=== PATIENT | female | born 1995 | race Caucasian/White ===

== ENCOUNTER → 2022-03-11 09:17 | Outpatient (CLI) | payer BC, SELFPAY ==
--- NOTE | ~2022-03-11 | US_ITS ---
EXAMINATION: US OB <= 14 weeks fetus DATE: 03/11/2022 09:37 INDICATION: First trimester dating TECHNIQUE: Real-time pelvic transabdominal and transvaginal ultrasound was performed. COMPARISON: None. FINDINGS: The uterus measures 9 x 6.8 x 7.1 cm. An approximately 3 cm fibroid is noted in the anterio r uterine body. There is an intrauterine gestational sac. A yolk sac is identified. heart motio n is identified measuring 154 beats per minute (bpm) by M-mode Doppler. The crown rump length m easures 3.9 cm, which correlates with an estimated gestational age of 10 weeks and 6 day(s) (+/-) 7 d ay(s). The ovaries are not visualized however no adnexal abnormality is seen. There is no free fluid in the pelvis. IMPRESSION: 1. Live intrauterine with an estimated gestational age of 10 weeks and 6 day(s) (+/-) 7 day (s) and an estimated delivery date of 10/01/2022. Reviewed, dictated and finalized at location A. IMPRESSION: 1. Live intrauterine with an estimated gestational age of 10 weeks an d 6 day(s) (+/-) 7 day(s) and an estimated delivery date of 10/01/2022.
== END ==
PROVIDERS: PCP Family Medicine; Visit Provider Advanced Practice Midwife
DX: Z36.9 Encounter for antenatal screening, unspecified (principal); Z3A.10 10 weeks gestation of pregnancy
CPT/HCPCS: 76801

== ENCOUNTER → 2022-05-03 14:05 | Outpatient (CLI) | payer OTHER, SELFPAY ==
--- NOTE | ~2022-05-03 | US_ITS ---
EXAMINATION: US OB /maternal detail DATE: 05/03/2022 15:07 INDICATION: survey TECHNIQUE: Multiple obstetric sonographic images performed. FINDINGS: Ultrasound dated 03/11/2022 There is a single living fetus in variable presentation. The placenta is low lying and posterior vickey suring 1.8 cm to the cervix. without placenta previa. Amniotic fluid volume is normal. cardiac activity and movement is noted with a heart rate of 154 beats per minute. The following anatomy was identified as normal: 4 chamber heart 3 vessel cord cord insertion kidneys urinary bladder stomach spine diaphragm ventricles cisterna magna cerebellum The following biometric data were obtained: BPD: 41mm corresponds to gestational age 18 weeks 3 days. Head circumference: 155 mm corresponds to gestational age 18 weeks 3 days. Abdominal circumference: 128 mm corresponds to gestational age 18 weeks 2 days. Femur length: 25 mm corresponds to gestational age 17 weeks 5 days. Head circumference to abdominal circumference ratio: 1.22 (normal range for expected gestational age is 1.08-1.27). Estimated weight: 223 grams +/- 33 grams using Hadlock method. IMPRESSION: 1: Single living intrauterine with an estimated gestational age of 18weeks 3days by initial ultrasound measurements, with an EDC of 10/01/2022 in variable presentation. 2. Normal survey. 3: Low-lying posterior placenta measuring 1.8 cm to the cervix. Reviewed, dictated and finalized at location B. ER AND POLISHER IMPRESSION: 1: Single living intrauterine with an estimated gestational age of 18 weeks 3days by initial ultrasound measurements, with an EDC of 10/01/2022 in tabby iable presentation. 2. Normal survey. 3: Low-lying posterior placenta measuring 1.8 cm to the cervix.
== END ==
PROVIDERS: PCP Family Medicine; Visit Provider Obstetrics & Gynecology Gynecology
DX: Z36.9 Encounter for antenatal screening, unspecified (principal); O44.42 Low lying placenta NOS or without hemorrhage, second trimester; Z3A.00 Weeks of gestation of pregnancy not specified
CPT/HCPCS: 76805

== ENCOUNTER → 2022-07-11 10:58 | Outpatient (CLI) | payer OTHER, SELFPAY ==
--- NOTE | ~2022-07-11 | US_ITS ---
EXAMINATION: US OB follow up DATE: 07/11/2022 11:18 INDICATION: Size greater than dates during third trimester TECHNIQUE: Real-time ultrasound of the pelvis was performed. The interpreting radiologist was not pre sent for the study. COMPARISON: None. FINDINGS: There is a single living fetus in breech presentation. The placenta is posterior and 1.3 cm from the internal cervical os. cardiac activity and movement are noted. heart rate is 142 beats per minute (bpm). The amniotic fluid index is 15.2 cm which is normal (normal range: 9. 4 cm to 22.8 cm). The following biometric data were obtained: Biparietal diameter (BPD): 7.0 cm; head circumference (HC): 26.1 cm; abdominal circumference (AC): 24 .0 cm; femur length (FL): 5.1 cm. These measurements are concordant. Estimated weight is 1161 g +/- 174 g, which correlates with the 27th percentile when 10/01/2022 is used as estimated date of delivery. As single measurements, these parameters are each equal to the following estimated gestational ages w ith ranges of +/- 2 standard deviations: BPD: 28 weeks 2 days ( 26 weeks 1 days - 30 weeks 3 days). HC: 28 weeks 3 days ( 26 weeks 2 days - 30 weeks 3 days). AC: 28 weeks 2 days ( 26 weeks 1 days - 30 weeks 4 days). FL: 27 weeks 3 days ( 25 weeks 2 days - 29 weeks 3 days). estimated gestational age based solely on measurements from this exam is 28 weeks 1 days +/- 2 weeks 0 days. IMPRESSION: 1. Single living fetus in breech presentation. 2. Low-lying placenta. 3. Normal amniotic fluid index. 4. Estimated weight is 1161 g +/- 174 g, which correlates with the 27th percentile when 10/02/19 23 is used as estimated date of delivery. Reviewed, dictated and finalized at location B. NESS RECORDS MANAGER IMPRESSION: 1. Single living fetus in breech presentation. 2. Low-lying placenta. 3. Normal amniotic fluid index. 4. Estimated weight is 1161 g +/- 174 g, which correlates with the 27th p ercentile when 10/01/2022 is used as estimated date of delivery.
== END ==
PROVIDERS: PCP Obstetrics & Gynecology Gynecology; Visit Provider Obstetrics & Gynecology Gynecology
DX: O36.63X0 Maternal care for excessive fetal growth, third trimester, not applicable or unspecified (principal); O44.43 Low lying placenta NOS or without hemorrhage, third trimester; Z3A.00 Weeks of gestation of pregnancy not specified
CPT/HCPCS: 76816

== ENCOUNTER → 2022-08-08 09:46 | Outpatient (CLI) | payer OTHER, SELFPAY ==
--- NOTE | ~2022-08-08 | US_ITS ---
US OB limited 08/08/2022 10:05 Indication: Low-lying placenta. Procedure: High-resolution Limited obstetrical ultrasound Comparison: No prior studies for comparison. Findings: There is a single living intrauterine in vertex presentation. Placenta is posteri or to the left measuring 9.9 cm to the cervix. Amniotic fluid volume is subjectively normal. he art rate is 164 BPM. Impression: 1: Single living intrauterine in vertex presentation. 2: Posterior placenta without previa. Reviewed, dictated and finalized at location B. ONNEL ANALYST Impression: 1: Single living intrauterine in vertex presentation. 2: Posterior placenta without previa.
== END ==
PROVIDERS: PCP Family Medicine; Visit Provider Advanced Practice Midwife
DX: O44.43 Low lying placenta NOS or without hemorrhage, third trimester (principal); Z3A.00 Weeks of gestation of pregnancy not specified
CPT/HCPCS: 76815

== ENCOUNTER → 2022-09-05 09:59 | Outpatient (CLI) | payer OTHER, SELFPAY ==
--- NOTE | ~2022-09-05 | US_ITS ---
EXAMINATION: US OB follow up DATE: 09/05/2022 10:24 INDICATION: Size greater than dates during third trimester TECHNIQUE: Real-time ultrasound of the pelvis was performed. The interpreting radiologist was not pre sent for the study. COMPARISON: 08/08/2022 FINDINGS: There is a single living fetus in vertex presentation. The placenta is posterior/left. Feta l cardiac activity and movement are noted. heart rate is 136 beats per minute (bpm). The amniotic fluid index is 18.0 cm which is normal (normal range: 7.7 cm to 24.9 cm). The following biometric data were obtained: Biparietal diameter (BPD): 9.3 cm; head circumference (HC): 34.3 cm; abdominal circumference (AC): 34 .6 cm; femur length (FL): 6.5 cm. The femoral length to abdominal circumference ratio and femoral length to biparietal diameter ratio a re greater than two standard deviations below the mean. These measurements are concordant. Estimated weight is 3201 g +/- 480 g, which correlates with the 81st percentile when 10/01/2013 is used as estimated date of delivery. As single measurements, these parameters are each equal to the following estimated gestational ages w ith ranges of +/- 2 standard deviations: BPD: 37 weeks 5 days ( 34 weeks 3 days - 40 weeks 6 days). HC: 39 weeks 4 days ( 37 weeks 0 days - 42 weeks 2 days). AC: 38 weeks 4 days ( 35 weeks 3 days - 51 weeks 4 days). FL: 33 weeks 4 days ( 30 weeks 4 days - 36 weeks 3 days). estimated gestational age based solely on measurements from this exam is 37 weeks 3 days +/- 2 weeks 4 days. IMPRESSION: 1. Single living fetus in vertex presentation. 2. Normal amniotic fluid index. 3. Estimated weight is 3201 g +/- 480 g, which correlates with the 81st percentile when 10/02/19 14 is used as estimated date of delivery. 4. Femoral length to abdominal circumference ratio and femoral length to biparietal diameter ratio ar e greater than two standard deviations below the mean. Reviewed, dictated and finalized at location F. IMPRESSION: 1. Single living fetus in vertex presentation. 2. Normal amniotic fluid index. 3. Estimated weight is 3201 g +/- 480 g, which correlates with the 81st p ercentile when 10/01/2013 is used as estimated date of delivery. 4. Femoral length to abdominal circumference ratio and femoral length to bipari etal diameter ratio are greater than two standard deviations below the mean.
== END ==
PROVIDERS: PCP Family Medicine; Visit Provider Obstetrics & Gynecology Gynecology
DX: O36.63X0 Maternal care for excessive fetal growth, third trimester, not applicable or unspecified (principal); Z3A.37 37 weeks gestation of pregnancy
CPT/HCPCS: 76816

== ENCOUNTER 2022-09-12 09:41 | Inpatient (IN) | payer OTHER, SELFPAY ==
[2022-09-12] VITALS (96 sets, daily range): BP systolic 115–157; BP diastolic 59–100; PULSE 58–91; RESP 16; TEMP 36.3–37; O2SAT 94–100; BMI 38.7
--- NOTE | 2022-09-12 09:50 | PC.NURSE ---
Dr Salvador at bedside, plan of care discussed and bedside US performed. No cardiac motion noted per Dr Salvador. Patient very tearful and upset.
[2022-09-12 11:44] LABS: Basophils Percent Auto 0.1 % (0.2-1.2); Eosinophils Absolute Auto 0.1 K/mm3 (0-0.3); Eosinophils Percent Auto 1.1 % (0-4.4); Hematocrit 37.9 % (37.0-47.0); Hemoglobin 12.6 g/dL (12.0-15.0); Immature Granulocyte Absolute 0.14 K/mm3 (0.00-0.031); Immature Granulocyte Percent A 1.6 % (0-0.5); Lymphocytes Absolute Auto 1.36 K/mm3 (0.9-3.2); Lymphocytes Percent Auto 15.4 % (18.3-44.2); Mean Corpuscular HGB Conc 33.2 g/dl (32-36); Mean Corpuscular Hemoglobin 30.5 pg (26-34); Mean Corpuscular Volume 91.8 fl (80-100); Mean Platelet Volume 11.5 fl (7.4-10.4); Monocytes Absolute Auto 0.5 K/mm3 (0.1-0.6); Monocytes Percent Auto 5.9 % (2.6-8.5); Neutrophils Absolute Auto 6.7 K/mm3 (1.3-6.7); Neutrophils Percent Auto 75.9 % (45.5-73.1); Nucleated Red Blood Cells Perc 0.3 % (0.0-0.2); Platelet Count Result 225 k/mm3 (150-375); Red Blood Count 4.13 M/mm3 (4.2-5.4); Red Cell Distribution Width 15.8 % (11.5-14.5); White Blood Count 8.9 K/mm3 (4.5-10.0)
--- NOTE | 2022-09-12 11:44 | LDADM ---
This patient, Johanny Gallegos, was admitted to Labor/Delivery/Recovery 110 on 09/12/22 at 09:41. Plans for labor, pain management and were discussed with patient. Patient/family oriented to hospital policies and general routines including ID bracelet, bed and alarms, visiting hours, pain management, procedures, bathroom and other care routines, personal items, smoking policy, room service/diet and guest tray routines, infant security routines, and visiting hours. Patient/Family are encouraged to report perceived risks to care and to ask questions if they do not understand what they are told or what they should do. See OBIX for further documentation.
[2022-09-12] MEDS: miSOPROStol 25 MCG TABLET BY MOUTH (11:51)
[2022-09-12 12:00] LABS: Magnesium 1.8 mg/dL (1.6-2.3); Phosphorus 3.9 mg/dL (2.5-4.5)
[2022-09-12 12:01] LABS: Alanine Aminotransferase 78 U/L (6-35); Albumin Level 3.7 g/dL (3.5-5.1); Alkaline Phosphatase 295 U/L (38-126); Anion Gap 7 mmol/L (8-16); Aspartate Amino Transferase 77 U/L (14-36); Bilirubin,Total 0.8 mg/dL (0.2-1.3); Blood Urea Nitrogen 6 mg/dL (7-17); Calcium 9.1 mg/dL (8.4-10.2); Carbon Dioxide 22 mmol/L (22-30); Chloride 107 mmol/L (98-107); Estimated CRCL calculation 163 ml/min; Estimated Glomerular Filt Rate > 60; Glucose 85 mg/dL (65-110); Potassium 4.1 mmol/L (3.4-5.0); Sodium 136 mmol/L (137-145)
--- NOTE | 2022-09-12 12:18 | WPDOBADMIT ---
Obstetrics - Admit Note Admission Note: record reviewed. No pertinent additions to the history and/or any subsequent changes in the physical findings that are not consistent with the expected course of the were found. Additions to the history and/or subsequent changes in the physical findings follow. IUFD at term.
--- NOTE | 2022-09-12 12:31 | PM.OBPNLAB ---
Pain Control Date/time seen: 09/12/22 12:20 Pain control: tolerating well Comments: Denies pain. Contractions Monitor mode: External Contraction pattern: Irregular Status Comments: IUFD Assessment and Plan Assessment: induction ongoing Comments: CNM at bedside. Blood pressures have been mild range and elevated liver enzymes observed on CMP. Patient denies headache, visual changes, right upper quadrant pain or increase in edema. She has no clonus But does have 1+ pitting bilateral lower extremity edema. discussed CNM concern for preeclampsia and discussed signs and symptoms of preeclampsia. On more thorough discussion patient endorses pruritus that has been severe at times. She reports itching to her palms of hands and soles of feet. She states that she never brought this up with her provider because she thought it was normal but has bee intermittent or the last few weeks. Will order bile acids.
[2022-09-12 12:32] LABS: Free T4 Free Thyroxine 0.66 ng/mL (0.78-2.19)
--- NOTE | 2022-09-12 12:39 | PM.OBPNLAB ---
Pain Control Date/time seen: 09/12/22 0955 Comments: pt to L&D from office as IUFD suspected. Dr. Salvador at bedside. Contractions Monitor mode: External Contraction pattern: Irregular Assessment and Plan Comments: Pt's spouse and mother present. Bedside ultrasound by Dr. Salvador confirms IUFD. Emotional support provided. Discussed plan of care and offer for IOL at this time. Pt desires to start IOL with sublingual misoprostol.
[2022-09-12 12:46] LABS: Hepatitis B Surface Antigen Negative (Negative)
[2022-09-12 12:52] LABS: Rubella IgG Antibody 37.2 IU/ML
[2022-09-12 12:55] LABS: HIV 1/2 Ab P24 Ag Result Negative (Negative)
[2022-09-12 13:58] LABS: Appearance Urine Clear (Clear); Bacteria Urine 1+ /hpf; Bilirubin Urine Negative (Negative); Blood Urine Negative (Negative); Color Urine Yellow (Yellow); Glucose Urine UA Negative (Negative); Ketones Urine Negative (Negative); Leukocyte Esterase Ur 3+ LEU/UL (NEGATIVE); Nitrate Urine Negative (Negative); Non Pathogenic Casts 0-2; Protein Urine Negative (Negative); RBC Urine 0-2 /hpf (0-2); Specific Grav Ur 1.007 (1.001-1.035); Squamous Epithelial Cell Urine Occasional /hpf (Few); Urobilinogen Urine 0.2 mg/dL (<2.0); WBC Urine 21-50 /hpf (0-3)
[2022-09-12 14:03] LABS: Creatinine Urine 33.4 mg/dL; Total Protein Urine Random 10 mg/dL
[2022-09-12 14:09] LABS: Add Urine Microscopic? YES
[2022-09-12 14:19] LABS: Amphetamine Screen Urine Negative (Negative); Barbiturate Screen Urine Negative (Negative); Benzodiazepines Screen Urine Negative (Negative); Cannabinoid Screen Urine Negative (Negative); Cocaine Screen Urine Negative (Negative); Methadone Screen Urine Negative (Negative); Opiate Screen Urine Negative (Negative); Phencyclidine Screen Urine Negative (Negative)
[2022-09-12] MEDS: miSOPROStol 100 MCG TABLET PO (16:13)
[2022-09-12] MEDS: fentaNYL CITRATE INJ (*CRX) 100 MCG/2 ML VIAL 50 MCG IV PUSH (17:56)
--- NOTE | 2022-09-12 18:13 | P.PNOB_ITS ---
Pain Control Date/time seen: 09/12/22 2575 Pain control: tolerating well Comments: Feeling occasional cramping/contractions. Pelvic Exam Dilation (cm): 1 (1.5) Effacement (%): 50 station: -2 Amniotic membrane status: Intact Contractions Monitor mode: External Contraction pattern: Irregular Contraction intensity: Mild Status Comments: n/a Assessment and Plan Assessment: induction ongoing Comments: CNM to bedside. Discussed IOL process and plan of care. Discussed expectations with IOL and delivery process. Discussed option of placing a patel balloon via cervix for cervical ripening/dilation. Pt agreeable/desires. Ofered IV analgesia and epidural before placement and pt desires IV medication. This was administered and she was then positioned in lithotomy. A patel catheter was placed through the cervical os using a stylette. It was inflated with 60ml s terile saline and the stylette was removed. Tubing secured to pt's thigh. Anticipate vaginal .
[2022-09-12] MEDS: LACTATED RINGERS 1,000 ML 125 ML IV CONT ×3 (18:21→20:50)
--- NOTE | 2022-09-12 18:27 | WPDANESEPPF ---
Anes - Initial Pre Proc Eval Procedure: Labor Epidural Date/Time: 09/12/22 18:27 Surgeon: Ladi Salvador MD Pre Op Diagnosis: Pain c contractions Pre Op Diagnosis: IUFD Patient Data Age: 27 Gender: F Height: 1.63 m Weight: 102.4 kg Last Vital Signs Pulse 59 L 09/12/22 17:31 BP 152/86 H 09/12/22 17:31 O2 Del Method Room Air 09/12/22 11:43 Allergies Allergy/AdvReac Type Severity Reaction Status Date / Time No Known Allergies Allergy Verified 09/01/22 13:40 Home Medications Medication Instructions Recorded Confirmed Type aspirin 81 mg tablet 81 mg PO DAILY 09/01/22 09/01/22 History ferrous sulfate 325 mg (65 mg 650 mg PO DAILY 09/01/22 09/01/22 History iron) tablet levothyroxine 100 mcg tablet 100 mcg PO DAILY 09/01/22 09/01/22 History prenat.vits,cj,sdn-oofr-xsuom 1 tablet PO DAILY 09/01/22 09/01/22 History sertraline 50 mg tablet 50 mg PO DAILY 09/01/22 09/01/22 History Laboratory Tests 09/12/22 09/12/22 09/12/22 10:55 10:55 10:55 WBC RBC Hgb Hct MCV MCH MCHC RDW Plt Count MPV Immature Gran % (Auto) Neut % (Auto) Lymph % (Auto) [place] % (Auto) Eos % (Auto) Baso % (Auto) Lymph # (Auto) [place] # (Auto) Eos # (Auto) Baso # (Auto) Abs Immat Gran (auto) Absolute Neuts (auto) Absolute Nucleated RBC Nucleated RBC % PT INR APTT LA PTT Screen Pending dRVVT Screen Pending dRVVT Additional Test Pending Lupus Anticoag Interp Pending Sodium Potassium Chloride Carbon Dioxide Anion Gap BUN Creatinine Estim Creat Clear Calc Estimated GFR Glucose Cancelled Uric Acid Cancelled 5.0 mg/dL mg/dL (2.5-7.5) Calcium Phosphorus 3.9 mg/dL mg/dL (2.5-4.5) Magnesium 1.8 mg/dL mg/dL (1.6-2.3) Total Bilirubin Direct Bilirubin AST ALT Alkaline Phosphatase Total Protein Albumin Cholic Acid Deoxycholic Acid Chenodeoxycholic Acid Total Bile Acids TSH 4.170 uIU/mL uIU/mL (0.465-4.680) Free T4 Urine Color Urine Appearance Urine pH Ur Specific [place] Urine Protein Urine Glucose (UA) Urine Ketones Ur Blood (Man) Urine Nitrate Urine Bilirubin Urine Urobilinogen Ur Leukocyte Esterase Urine RBC Urine WBC Ur Squamous Epith Cells Urine Bacteria Urine Casts U Random Total Protein Urine Creatinine Protein/Creat Ratio 2 Urine Opiates Screen Urine Methadone Screen Ur Barbiturates Screen Ur Phencyclidine Scrn Ur Amphetamine Screen U Benzodiazepines Scrn Urine Cocaine Screen U Cannabinoids Screen Beta-2-GPI IgG Ab Beta-2-GPI IgA Ab Beta-2-GPI IgM Ab Anti-Cardiolipin IgG Ab Anti-Cardiolipin IgA Ab Anti-Cardiolipin IgM Ab RPR CMV IgG Ab CMV IgM Ab Hep Bs Antigen HIV 1&2 Ab/P24 Ag 4thGn Rubella IgG Antibody Blood Type Antibody Screen 09/12/22 09/12/22 09/12/22 10:55 10:55 10:55 WBC RBC
--- NOTE | 2022-09-12 18:58 | WPDANESEPN ---
Anes - Epidural Procedure Note Date/Time: 09/12/22 18:58 Consent: I have discussed with the patient/family/POA, the placement of an epidural catheter and the use of epidural narcotic/local anesthetic for labor analgesia and/or postoperative pain management, including associated potential risks, benefits, complications and side effects. I have discussed alternative methods of labor analgesia and/or postoperative pain management. The patient/family/POA, understand(s) and wish(es) to proceed with epidural narcotic/local anesthetic for labor analgesia and/or postoperative pain management. Time-Out: A pre-procedural Time-Out was completed immediately before starting the procedure and confirmed: Patient Identification, Site, Procedure, Patient Position and the Availability of Requisite Equipment. Clinical Indications: Pain c contractions Epidural Insertion Note Patient position: sitting Skin prep: chlorhexidine and sterile drape Needle: 18g Tuohy-Schliff Catheter: 20g Unstyleted Technique: Loss of resistance. Level of insertion: L4/5 Catheter skin jordon (cm): 7 Length in epidural space (cm): 12 Skin anesthesia: lidocaine 1% Test dose: negative for subarachnoid Inj and negative for intravascular Inj Time of test dose: 18:47 Observations: tolerated well Complications: none
[2022-09-12] MEDS: OXYTOCIN 30 UNITS/NS 500 ML 30 UNITS/500 ML BAG IV CONT (22:00)
[2022-09-13] VITALS (257 sets, daily range): BP systolic 110–160; BP diastolic 56–98; PULSE 47–114; RESP 16–18; TEMP 36.4–37.7; O2SAT 94–100
[2022-09-13 06:56] LABS: Rapid Plasma Reagin Non-Reactive (NonReactive)
--- NOTE | 2022-09-13 07:49 | PM.OBPNLAB ---
Pain Control Date/time seen: 09/13/22 07:30 Pain control: tolerating well and epidural Pelvic Exam Dilation (cm): 5 (1.5) Effacement (%): 70 station: -2 Amniotic membrane status: Intact Contractions Monitor mode: External Contraction pattern: Irregular Contraction intensity: Moderate Status Comments: n/a Assessment and Plan Pitocin rate (mU/min): 16 Assessment: induction ongoing Comments: CNM to bedside. Patient reports sleeping on and off over the night. She is comfortable and epidurals infusing well. Emotional support provided. Discussed pt wishes for and holding baby. Discuss next steps in induction and recommended amniotomy and placement intrauterine pressure catheter. Patient is agreeable. Amniotomy performed and there was a return of a large amount of very dark green / brown meconium-stained amniotic fluid. The IUPC was placed and the catheter was advanced easily. Plan to increase Pitocin as needed to achieve adequate contraction pattern. Anticipate vaginal .
[2022-09-13] MEDS: CALCIUM CARBONATE (TUMS) 500 MG (200 MG ELEMENTAL) PO (14:03)
[2022-09-13] MEDS: TRANEXAMIC ACID 1,000MG/ISO100 1,000 MG/100 ML BAG 200 MG IVPB (16:56)
[2022-09-13] MEDS: CARBOPROST TROMETHAMINE 250 MCG/ML AMPUL (17:09)
[2022-09-13] MEDS: miSOPROStol 200 MCG TABLET (17:10)
--- NOTE | 2022-09-13 17:30 | P.PCNOB_ITS ---
OB - Delivery Note Procedure Delivery date: 09/13/22 Procedure: Induction method: Per Misoprostol Protocol and Per Pitocin Protocol Delivery augmentation: Rupture of Membranes Delivery monitor: Internal Uterine Route of delivery: Episiotomy description: None Laceration Description: Periurethral Specimen: Yes (placenta) Quantitative Blood Loss (ml): 1,765 Anesthesia type: Epidural Disposition: No change Complications: Covid in IUFD at 37 weeks Narrative: Pt arrived from the office on 09/12/22 and IUFD confirmed with Dr. Salvador. Pt offered immediate vs delayed IOL and she elected for immediate. She received buccal misoprostol followed by a patel balloon and then oxytocin for her induction. She progressed to complete dilation and pushed with contractions. She delivered a stillborn male over an intact perineum. There was a compound presentation with the right hand positioned to the left side of the face. The cord was doubly clamped and cut and the baby was placed in a basinet per pt wishes. The placenta delivered in the [facility] present[facility]. There was some uterine atony. Hemabate, TXA, and rectal cytotec were given. Clots were manually removed from the lower uterine segment twice. After hemostasis was achieved, the placenta was examined. There was some meconium staining to the tissue. The umbilical cord appeared longer than average and a true knot was noted. The umbilical cord was also very straight with no spiraling observed. Ancef given IV for infection prophylaxis after bimanual exam. [place] Baby Date of : 09/13/22 Weeks of gestation at delivery: 37 gender: Male Weight (pounds): 7 Weight (ounces): 13 presentation: vertex position: Right Occiput Anterior (compound presentation with right hand to left side of head) Placenta delivery description: Spontaneous Cord Vessel Description: 3 Vessels, True Knot and Around Body score one minute: 0 score five minutes: 0 score ten minutes: 0
[2022-09-13] MEDS: ceFAZolin 2 GM/D5W 50 ML 2 GM/50 ML BAG IVPB (17:32)
[2022-09-13] MEDS: LOPERAMIDE HCL 2 MG CAPSULE 4 MG PO (17:32)
[2022-09-13] MEDS: OXYTOCIN 30 UNITS/NS 500 ML 30 UNITS/500 ML BAG 125 UNITS IV CONT (17:35)
[2022-09-13] MEDS: OXYTOCIN 30 UNITS/NS 500 ML 30 UNITS/500 ML BAG 999 UNITS IV CONT (17:45)
[2022-09-13] MEDS: IBUPROFEN 600 MG TABLET PO (19:20)
[2022-09-13] MEDS: ACETAMINOPHEN 325 MG TABLET 650 MG PO (20:23)
[2022-09-14] VITALS (17 sets, daily range): BP systolic 121–151; BP diastolic 63–90; PULSE 62–89; RESP 16–20; TEMP 35.9–37.1; O2SAT 97–99
[2022-09-14 04:19] LABS: Hematocrit 31.9 % (37.0-47.0); Hemoglobin 10.5 g/dL (12.0-15.0)
[2022-09-14 05:05] LABS: Free T4 Free Thyroxine 0.51 ng/mL (0.78-2.19)
[2022-09-14] MEDS: LEVOTHYROXINE SODIUM 100 MCG TABLET PO (06:43)
[2022-09-14] MEDS: MULTIVIT/MIN/PREN/FOL AC/IRON TABLET 1 TAB PO (08:01)
[2022-09-14] MEDS: SERTRALINE HCL 50 MG TABLET PO (08:02)
[2022-09-14] MEDS: LEVOTHYROXINE SODIUM 25 MCG TABLET PO (08:02)
--- NOTE | 2022-09-14 08:07 | P.PNOB_ITS ---
OB - PN: Subj Subjective Date/time seen: 09/14/22 0750 Interval history: Resting in bed. Reports ambulating to BR and voiding without difficulty. Denies heavy bleeding or large clots. Spouse present for support. Grieving is WNL. Denies MCDONALD, visual changes, RUQ pain, or change in edema. Patient comments: no complaints and pain well controlled OB - PN: Obj Data Labs 09/14/22 04:03 09/12/22 10:56 Labs: Laboratory Results - last 24 hr 09/12/22 09/14/22 09/14/22 17:36 04:03 04:03 Hgb 10.5 L Hct 31.9 L PT Cancelled INR Cancelled APTT Cancelled TSH 5.130 H Free T4 09/14/22 04:03 Hgb Hct PT INR APTT TSH Free T4 0.51 L OB - PN A/P Plan day: 1 Plan: routine care Comments: Discussed plan of care with pt. Will evaluate later today and consider timing of discharge home. Time Spent With Patient Time: Total time spent is greater than 50% in coordination of care (as documented) at patient's floor/unit and/or counseling patient: Review of Systems Review of Systems: All systems reviewed & are unremarkable except as noted in HPI and below Exam Narrative: Alert and oriented. Mood is pleasant and cooperative. Urinating without difficulty. Denies passing any large clots. Perineum with minimal edema. Fundus firm and below umbilicus. Const: General: cooperative, healthy appearing, no acute distress and alert Orientation/consciousness: patient oriented x3 Limitations: no limitations Resp: Effort & Inspection: normal respiratory effort Auscultation: clear to auscultation bilaterally Cardio: Rate: regular rate GI: Inspection: normal to inspection Neuro: General: patient oriented x3 Other: DTRs 2+, neg clonus Extrem: General: normal to inspection Psych: Appearance: grossly normal Mental Status: mental status grossly norm al Affect: normal affect Thought process: Normal thought process present
[2022-09-14] MEDS: ACETAMINOPHEN 325 MG TABLET 650 MG PO ×2 (12:03→23:56)
--- NOTE | 2022-09-14 17:20 | PM.OBPNVD ---
OB - PN: Subj Subjective Date/time seen: 09/14/22 17:15 Interval history: Sitting up in bed. Several family members and friends present. Still undecided on arrangements for baby. Denies MCDONALD, visual changes, RUQ pain, change in edema. Patient comments: no complaints and pain well controlled OB - PN: Obj Data Labs 09/14/22 04:03 09/12/22 10:56 Labs: Laboratory Results - last 24 hr 09/12/22 09/14/22 09/14/22 17:36 04:03 04:03 Hgb 10.5 L Hct 31.9 L PT Cancelled INR Cancelled APTT Cancelled TSH 5.130 H Free T4 09/14/22 04:03 Hgb Hct PT INR APTT TSH Free T4 0.51 L OB - PN A/P Plan day: 1 Plan: routine care Comments: Discussed BPs and preeclampsia. Recommend remaining overnight for BP monitoring and evaluation in the am by Dr. Salvador. Plan for DC home in the am. Discussed f/up in one week for BP check and 6 weeks for exam and recheck of thyroid labs. Time Spent With Patient Time: Total time spent is greater than 50% in coordination of care (as documented) at patient's floor/unit and/or counseling patient:
[2022-09-14] MEDS: IBUPROFEN 600 MG TABLET PO (23:56)
[2022-09-15 03:33] VITALS: PULSE 68; O2SAT 97
[2022-09-15 03:34] VITALS: BP 120/71; PULSE 64; RESP 16; TEMP 36
--- NOTE | 2022-09-15 07:46 | PM.OBPNVD ---
OB - PN: Subj Subjective Date/time seen: 09/15/22 07:46 Interval history: . Denies MCDONALD, visual changes, RUQ pain, change in edema. Patient comments: no complaints and pain well controlled OB - PN: Obj Data Labs 09/14/22 04:03 09/12/22 10:56 OB - PN A/P Assessment and Plan (1) (normal spontaneous vaginal delivery): Code(s): O80 - Encounter for full-term uncomplicated delivery Status: Acute (2) Preeclampsia: Code(s): O14.90 - Unspecified pre-eclampsia, unspecified trimester Status: Acute Assessment and Plan: vss no symptoms follow up Monday (3) IUFD (intrauterine ): Status: Acute Assessment and Plan: grief appropriate plans cremation for Plan day: 2 Plan: discharge home Time Spent With Patient Time: Total time spent is greater than 50% in coordination of care (as documented) at patient's floor/unit and/or counseling patient: Exam : Bimanual exam- vagina & uterus: other (Uterus firm, nt @U)
[2022-09-15] MEDS: LEVOTHYROXINE SODIUM 125 MCG TABLET PO (08:43)
[2022-09-15] MEDS: SERTRALINE HCL 50 MG TABLET PO (08:43)
[2022-09-15 08:44] VITALS: BP 143/81; PULSE 58
[2022-09-15 09:31] LABS: CMV IgM Antibody <30.00 AU/mL (<30.00)
[2022-09-15 12:51] LABS: CMV IgG Antibody <0.60 U/mL (<0.60)
[2022-09-16 05:22] LABS: Anti Cardio Antibody IgM <2.0 MPL-U/mL (<20.0); Anti Cardiolipin Antibody IgA <2.0 APL-U/mL (<20.0); Anti Cardiolipin Antibody IgG <2.0 GPL-U/mL (<20.0)
[2022-09-17 22:05] LABS: Lupus dRVVT Screen 39 sec (<=45); PTT-LA Screen 29 sec (<=40)
[2022-09-20 16:15] LABS: Chenodeoxycholic Acid 6.1 umol/L (< OR = 3.9); Cholic Acid 18.3 umol/L (< OR = 2.8); Total Bile Acids 30.3 umol/L (< OR = 8.3)
--- NOTE | 2022-10-05 08:06 | PM.OBDSVD ---
DS: Admitting Diagnosis Discharge Date 09/15/22 Admitting Diagnosis IUFD at 37 weeks hypothyroidism covid infection in OB - DS: Summary OB Procedures : NST and Ultrasound OB Procedures Intrapartum: Spontaneous Vag Delivery OB Procedures: : None Time Spent with Patient Time attestation: Total time spent providing and/or coordinating discharge services: DS: Data Data Completed and Pending Completed studies during hospitalization: Pending at discharge 09/13/22 16:41 Surgical [PTH] Routine Discharge Plan Discharge Attending physician on discharge: Ladi Salvador Consulting providers: Jaiden Jones Discharging Clinician: Keira Jones Patient Disposition: Home, Self-Care Activity: may shower Diet: as tolerated Discharge Instructions: Follow-Up: Call your Provider's office for an appointment to be seen in: 1 Week EPISIOTOMY/PERINEAL CARE: * Until bleeding stops, use your michelle bottle after urinating * Change your pad frequently throughout the day * You may take sitz baths several times a day (fill your bathtub with warm water and soak for 20 minutes.) Do NOT bathe in the water * No tub baths until seen by your physician - You may shower BLEEDING: * Each individual will experience vaginal bleeding, but it will vary with each situation and individual woman. * Vaginal bleeding will go thru cycles-from bright red, to pinkish to a white, creamy discharge. This is considered normal. You may also experience a brownish discharge which is also normal. DIET AND NUTRITION: * Eat at least 3 regular, well-balanced meals per day: include all 4 food groups daily. * You may prefer 6 small meals. * Drink 6-8 glasses of water or non-caffeinated beverages per day. * Loss of appetite is common with loss. We encourage you to try to eat; this will help with both your physical and emotional health. ACTIVITY: * Rest as much as possible during the day. * Do not exercise or lift anything heavier than 10 pounds (such as laundry or other children.) * Avoid stairs or driving as much as possible, especially if you are taking pain medication. * Do not put anything into the vagina. No douching, tampons, or sexual activity until seen and released by your physician. * Listen to your body, and do not do what is uncomfortable or painful. EMOTIONAL HEALTH: * This is a very difficult and sad time for you and your family, friends, and other children. It may be helpful to refer to the booklets on loss that you received. * It is okay to be sad and to cry. Denial, anger, and guilt are also normal stages that you and your family may go thru during this time. Each person reaches these stages at their own pace. * Keep the lines of communication open between family and friends, and ask for help if needed. NOTIFY PHYSICIAN IF YOU HAVE ANY QUESTIONS OR IF ANY OF THE FOLLOWING SYMPTOMS OCCUR: * If your episiotomy or incision becomes red, swollen, or more painful than what you have experienced in the hospital. * If your vaginal bleeding becomes foul smelling. * If your vaginal bleeding becomes more heavy than a period or if your bleeding changes from pink to bright red. However, you may pass an occasional walnut-sized clot once or twice for the first week . * If you experience a sharp, shooting pain in you calves. * If you discover a hard, reddened area on your breast or if you experience flu-like symptoms. * If you develop a temperature of 100.4 or greater. * If you are unable to eat or sleep and take care of activities that sustain life. * If you feel any desire to harm yourself or others, contact your physician immediately or go to the nearest emergency room. FOLLOW-UP CARE: * [facility] offers a and Loss Support group which meets the Monday of every month from 7-9pm. * If consent was given, you will be contacted by a Share
--- NOTE | 2022-10-14 08:10 | PM.OBDSVD ---
DS: Admitting Diagnosis Discharge Date 09/15/22 Admitting Diagnosis IUP at 37 weeks with IUFD DS: Discharge Diagnosis Discharge Diagnosis (1) Preeclampsia: Code(s): O14.90 - Unspecified pre-eclampsia, unspecified trimester Status: Acute (2) (normal spontaneous vaginal delivery): Code(s): O80 - Encounter for full-term uncomplicated delivery Status: Acute (3) IUFD (intrauterine ): Status: Acute (4) Cholestasis during : Code(s): O26.619 - Liver and biliary tract disorders in , unspecified trimester; K83.1 - Obstruction of bile duct Status: Acute (5) Grief associated with loss of fetus: Code(s): F43.21 - Adjustment disorder with depressed mood Status: Acute OB - DS: Summary OB Procedures : NST and Ultrasound OB Procedures Intrapartum: Spontaneous Vag Delivery OB Procedures: : None Time Spent with Patient Time attestation: Total time spent providing and/or coordinating discharge services: DS: Data Data Completed and Pending Completed studies during hospitalization: Pending at discharge 09/13/22 16:41 Surgical [PTH] Routine Discharge Plan Discharge Attending physician on discharge: Ladi Salvador Consulting providers: Jaiden Jones Discharging Clinician: Keira Jones Patient Disposition: Home, Self-Care Activity: may shower Diet: as tolerated Discharge Instructions: Follow-Up: Call your Provider's office for an appointment to be seen in: 1 Week EPISIOTOMY/PERINEAL CARE: * Until bleeding stops, use your michelle bottle after urinating * Change your pad frequently throughout the day * You may take sitz baths several times a day (fill your bathtub with warm water and soak for 20 minutes.) Do NOT bathe in the water * No tub baths until seen by your physician - You may shower BLEEDING: * Each individual will experience vaginal bleeding, but it will vary with each situation and individual woman. * Vaginal bleeding will go thru cycles-from bright red, to pinkish to a white, creamy discharge. This is considered normal. You may also experience a brownish discharge which is also normal. DIET AND NUTRITION: * Eat at least 3 regular, well-balanced meals per day: include all 4 food groups daily. * You may prefer 6 small meals. * Drink 6-8 glasses of water or non-caffeinated beverages per day. * Loss of appetite is common with loss. We encourage you to try to eat; this will help with both your physical and emotional health. ACTIVITY: * Rest as much as possible during the day. * Do not exercise or lift anything heavier than 10 pounds (such as laundry or other children.) * Avoid stairs or driving as much as possible, especially if you are taking pain medication. * Do not put anything into the vagina. No douching, tampons, or sexual activity until seen and released by your physician. * Listen to your body, and do not do what is uncomfortable or painful. EMOTIONAL HEALTH: * This is a very difficult and sad time for you and your family, friends, and other children. It may be helpful to refer to the booklets on loss that you received. * It is okay to be sad and to cry. Denial, anger, and guilt are also normal stages that you and your family may go thru during this time. Each person reaches these stages at their own pace. * Keep the lines of communication open between family and friends, and ask for help if needed. NOTIFY PHYSICIAN IF YOU HAVE ANY QUESTIONS OR IF ANY OF THE FOLLOWING SYMPTOMS OCCUR: * If your episiotomy or incision becomes red, swollen, or more painful than what you have experienced in the hospital. * If your vaginal bleeding becomes foul smelling. * If your vaginal bleeding becomes more heavy than a period or if your bleeding changes from pink to bright red. However, you may pass an occasional walnut-sized clot once or twice for the fir
== END 2022-09-15 09:54 | disposition home or self-care (01) | DRG 806 ==
PROVIDERS: Admitting Provider Obstetrics & Gynecology Gynecology; PCP Family Medicine; Referring Provider Advanced Practice Midwife; Visit Provider Obstetrics & Gynecology Gynecology
DX: O36.4XX0 Maternal care for intrauterine death, not applicable or unspecified (principal); O72.1 Other immediate postpartum hemorrhage; Z37.1 Single stillbirth; Z3A.37 37 weeks gestation of pregnancy; O77.0 Labor and delivery complicated by meconium in amniotic fluid; O69.2XX0 Labor and delivery complicated by other cord entanglement, with compression, not applicable or unspecified; O14.94 Unspecified pre-eclampsia, complicating childbirth; O32.6XX0 Maternal care for compound presentation, not applicable or unspecified
CPT/HCPCS: 36415; 80053; 80307; 81001; 82542; 82570; 83735; 84100; 84156; 84439; 84443; 84550; 85014; 85018; 85025; 85613; 85730; 86146; 86147; 86592; 86644; 86645; 86703; 86762; 86850; 86900; 86901; 87086; 87088; 87340; 88307; A9270; G0432; J0690; J2210; J2590; J2795; J3010; J7120

== ENCOUNTER 2022-09-16 11:22 | Outpatient (CLI) | payer OTHER, SELFPAY ==
[2022-09-16 11:45] VITALS: BP 136/88; PULSE 59
[2022-09-16 12:00] VITALS: BP 143/91; PULSE 66
[2022-09-16 12:15] VITALS: BP 152/85; PULSE 57
[2022-09-16 12:19] LABS: Basophils Percent Auto 0.4 % (0.2-1.2); Eosinophils Absolute Auto 0.2 K/mm3 (0-0.3); Eosinophils Percent Auto 2.3 % (0-4.4); Hematocrit 30.8 % (37.0-47.0); Hemoglobin 9.9 g/dL (12.0-15.0); Immature Granulocyte Absolute 0.15 K/mm3 (0.00-0.031); Immature Granulocyte Percent A 1.8 % (0-0.5); Lymphocytes Absolute Auto 1.59 K/mm3 (0.9-3.2); Mean Corpuscular HGB Conc 32.1 g/dl (32-36); Mean Corpuscular Hemoglobin 30.7 pg (26-34); Mean Corpuscular Volume 95.4 fl (80-100); Mean Platelet Volume 10.3 fl (7.4-10.4); Monocytes Absolute Auto 0.5 K/mm3 (0.1-0.6); Monocytes Percent Auto 5.4 % (2.6-8.5); Neutrophils Percent Auto 71.1 % (45.5-73.1); Nucleated Red Blood Cells Perc 0.2 % (0.0-0.2); Platelet Count Result 258 k/mm3 (150-375); Red Blood Count 3.23 M/mm3 (4.2-5.4); Red Cell Distribution Width 15.9 % (11.5-14.5); White Blood Count 8.4 K/mm3 (4.5-10.0)
[2022-09-16 12:30] VITALS: BP 138/84; PULSE 58
[2022-09-16 12:30] LABS: Alanine Aminotransferase 77 U/L (6-35); Albumin Level 3.3 g/dL (3.5-5.1); Alkaline Phosphatase 241 U/L (38-126); Anion Gap 5 mmol/L (8-16); Aspartate Amino Transferase 86 U/L (14-36); Bilirubin,Total 0.5 mg/dL (0.2-1.3); Blood Urea Nitrogen 9 mg/dL (7-17); Calcium 8.2 mg/dL (8.4-10.2); Carbon Dioxide 27 mmol/L (22-30); Chloride 105 mmol/L (98-107); Estimated Glomerular Filt Rate > 60; Glucose 82 mg/dL (65-110); Potassium 4.3 mmol/L (3.4-5.0); Sodium 137 mmol/L (137-145); Uric Acid 5.2 mg/dL (2.5-7.5)
[2022-09-16 12:45] VITALS: BP 149/95; PULSE 59
--- NOTE | 2022-09-16 12:57 | PC.NURSE ---
1241--Labs,BP's and pt status reported to Dr. Salvador. No new meds given. Pt reminded to call Tuesday 09/19 to make appointment for office visit.
== END 2022-09-16 12:55 | disposition home or self-care (01) ==
LOC: ANHOBOP 11:27 → ANHOBPP 11:28
PROVIDERS: PCP Family Medicine; Visit Provider Obstetrics & Gynecology Gynecology
DX: O13.9 Gestational [pregnancy-induced] hypertension without significant proteinuria, unspecified trimester (principal); Z3A.00 Weeks of gestation of pregnancy not specified
CPT/HCPCS: 36415; 80053; 84550; 85025; 99199

== ENCOUNTER 2023-09-27 08:23 | Outpatient (CLI) | payer OTHER, SELFPAY ==
--- NOTE | ~2023-09-27 | US_ITS ---
EXAMINATION: US OB transvaginal DATE: 09/27/2023 08:47 INDICATION: Supervision of during first trimester TECHNIQUE: Real-time pelvic ultrasound utilizing transvaginal probe was performed. The interpreting r adiologist was not present for the study. COMPARISON: None. FINDINGS: The uterus measures 8.0 x 5.3 x 6.3 cm. There is an intrauterine gestational sac. A yolk sac and fet al pole are identified. The crown rump length measures 3 mm, which correlates with an estimated gesta tional age of 6 weeks and 0 days. heart motion is identified measuring 118 beats per minute (bp m) by M-mode Doppler. The right ovary measures 2.5 x 2.5 x 1.2 cm. The left ovary measures 3.1 x 2.0 x 1.9 cm. Vascular gary w on color Doppler and a few subcentimeter anechoic follicles identified at both ovaries. There is no free fluid in the pelvis. IMPRESSION: 1. Single living fetus with heart rate of 118 bpm. 2. Gestational age by ultrasound of 6 weeks 0 day(s) +/- 4 day(s) with ultrasound estimated date of delivery (JOSÉ LUIS) of 05/22/2024. Reviewed, dictated and finalized at location A. IMPRESSION: 1. Single living fetus with heart rate of 118 bpm. 2. Gestational age by ultrasound of 6 weeks 0 day(s) +/- 4 day(s) with ultraso und estimated date of delivery (JOSÉ LUIS) of 05/22/2024.
== END 2023-09-27 08:24 ==
PROVIDERS: PCP Family Medicine; Visit Provider Obstetrics & Gynecology Gynecology
DX: O09.299 Supervision of pregnancy with other poor reproductive or obstetric history, unspecified trimester (principal); Z3A.01 Less than 8 weeks gestation of pregnancy
CPT/HCPCS: 76817

== ENCOUNTER 2023-11-13 14:28 | Outpatient (CLI) | payer OTHER, SELFPAY ==
--- NOTE | ~2023-11-13 | US_ITS ---
EXAMINATION: US OB <= 14 weeks fetus INDICATION: Spotting 1st trimester TECHNIQUE: Sonography of the pelvis was performed by transabdominal techniques. COMPARISON: 09/27/2023. RESULT: Uterus: 13.0 x 8.0 x 10.6 cm. Anteverted. Homogenous myometrium. Intrauterine gestational sac: Single present. Embryo: Single present. [place] rump length: 7.45 cm, corresponding gestational age 13 weeks, 4 days. Gestational heart rate: present 150 bpm. Subgestational hematoma: Absent . Right ovary: Not visualized. No adnexal mass. Left ovary: 3.2 x 1.1 x 2.4 cm. No adnexal mass. Pelvis free fluid: None. IMPRESSION: Single, live intrauterine gestation. Estimated Gestational Age: 13 weeks, 4 days by crown rump length. JOSÉ LUIS by ultrasound 05/16/2024. Reviewed, dictated and finalized at location K. IMPRESSION: Single, live intrauterine gestation. Estimated Gestational Age: 13 weeks, 4 days by crown rump length. JOSÉ LUIS by ultra sound 05/16/2024.
== END 2023-11-13 14:29 ==
PROVIDERS: PCP Advanced Practice Midwife; Visit Provider Advanced Practice Midwife
DX: O26.851 Spotting complicating pregnancy, first trimester (principal); Z3A.13 13 weeks gestation of pregnancy
CPT/HCPCS: 76801

== ENCOUNTER 2024-04-08 10:03 | Outpatient (CLI) | payer OTHER, SELFPAY ==
--- NOTE | ~2024-04-08 | US_ITS ---
EXAMINATION: US OB follow up DATE: 04/08/2024 11:20 INDICATION: Variable decelerations on nonstress test. TECHNIQUE: Real-time ultrasound of the pelvis was performed. The interpreting radiologist was not pre sent for the study. COMPARISON: None. FINDINGS: There is a single living fetus in vertex presentation. The placenta is anterior and not low-lying. F etal heart rate is 145 beats per minute (bpm). The amniotic fluid index is 13.2 cm, which is normal (5th%-95%: 8.1-24.8 cm at 34 weeks estimated gestational age). The following biometric data were obtained: BPD: 9.0 cm -> 36 weeks 3 days Head circumference: 31.5 cm -> 35 weeks 3 days Abdominal circumference: 32.0 cm -> 36 weeks 0 days Femur length: 6.5 cm -> 33 weeks 3 days These measurements are concordant. Head circumference to abdominal circumference ratio: 0.98 (normal range 0.93-1.10). Estimated weight: 2639 g (+/-) 396 g or 5 lbs. 13 oz. (+/-) 14 oz. IMPRESSION: 1. Single living fetus in vertex presentation with heart rate of 145 bpm. 2. Normal amniotic fluid index of 13.2 cm. 3. Estimated weight is 68th percentile by Hadlock criteria when 05/16/2024 is used as the estima ming date of delivery (JOSÉ LUIS). Please correlate with clinical information or earlier ultrasounds for mos t accurate JOSÉ LUIS. Reviewed, dictated and finalized at location A. IMPRESSION: 1. Single living fetus in vertex presentation with heart rate of 145 bpm. 2. Normal amniotic fluid index of 13.2 cm. 3. Estimated weight is 68th percentile by Hadlock criteria when 05/16/2024 is used as the estimated date of delivery (JOSÉ LUIS). Please correlate with clinica l information or earlier ultrasounds for most accurate JOSÉ LUIS.
[2024-04-08 10:58] LABS: Hematocrit 36.7 % (37.0-47.0); Hemoglobin 11.9 g/dL (12.0-15.0); Mean Corpuscular HGB Conc 32.4 g/dl (32-36); Mean Corpuscular Hemoglobin 28.7 pg (26-34); Mean Corpuscular Volume 88.6 fl (80-100); Mean Platelet Volume 9.9 fl (7.4-10.4); Platelet Count Result 299 k/mm3 (150-375); Red Blood Count 4.14 M/mm3 (4.2-5.4); Red Cell Distribution Width 18.9 % (11.5-14.5); White Blood Count 9.7 K/mm3 (4.5-10.0)
[2024-04-08 11:11] LABS: Alanine Aminotransferase 18 U/L (6-35); Albumin Level 3.8 g/dL (3.5-5.1); Alkaline Phosphatase 225 U/L (38-126); Anion Gap 10 mmol/L (4-12); Aspartate Amino Transferase 18 U/L (14-36); Bilirubin,Total 0.6 mg/dL (0.2-1.3); Blood Urea Nitrogen 9 mg/dL (7-17); Calcium 9.2 mg/dL (8.4-10.2); Carbon Dioxide 23 mmol/L (22-30); Chloride 103 mmol/L (98-107); Estimated Glomerular Filt Rate > 60; Glucose 84 mg/dL (65-110); Sodium 136 mmol/L (137-145)
[2024-04-08 11:38] LABS: Thyroid Stimulating Hormone 0.943 uIU/mL (0.465-4.680)
[2024-04-08 12:03] LABS: Free T4 Free Thyroxine 0.71 ng/mL (0.78-2.19)
== END 2024-04-08 10:04 | disposition home or self-care (01) ==
LOC: ANHIMG 10:04
PROVIDERS: PCP Advanced Practice Midwife; Visit Provider Advanced Practice Midwife
DX: O36.8399 Maternal care for abnormalities of the fetal heart rate or rhythm, unspecified trimester, other fetus (principal); O26.899 Other specified pregnancy related conditions, unspecified trimester; L29.9 Pruritus, unspecified; O99.280 Endocrine, nutritional and metabolic diseases complicating pregnancy, unspecified trimester; Z3A.00 Weeks of gestation of pregnancy not specified; O99.413 Diseases of the circulatory system complicating pregnancy, third trimester
CPT/HCPCS: 36415; 76816; 80053; 82542; 82728; 84439; 84443; 85027

== ENCOUNTER 2024-04-29 04:53 | Inpatient (IN) | payer OTHER, SELFPAY ==
[2024-04-29] VITALS (128 sets, daily range): BP systolic 80–179; BP diastolic 46–144; PULSE 64–210; RESP 12–18; TEMP 36.1–37.7; O2SAT 93–99; BMI 38.9
[2024-04-29 05:34] LABS: Basophils Percent Auto 0.1 % (0.2-1.2); Eosinophils Absolute Auto 0.1 K/mm3 (0-0.3); Eosinophils Percent Auto 1.3 % (0-4.4); Hematocrit 35.9 % (37.0-47.0); Hemoglobin 12.3 g/dL (12.0-15.0); Immature Granulocyte Absolute 0.03 K/mm3 (0.00-0.031); Immature Granulocyte Percent A 0.4 % (0-0.5); Lymphocytes Absolute Auto 1.43 K/mm3 (0.9-3.2); Lymphocytes Percent Auto 18.7 % (18.3-44.2); Mean Corpuscular HGB Conc 34.3 g/dl (32-36); Mean Corpuscular Hemoglobin 29.6 pg (26-34); Mean Corpuscular Volume 86.3 fl (80-100); Mean Platelet Volume 10.2 fl (7.4-10.4); Monocytes Absolute Auto 0.6 K/mm3 (0.1-0.6); Monocytes Percent Auto 7.2 % (2.6-8.5); Neutrophils Absolute Auto 5.5 K/mm3 (1.3-6.7); Neutrophils Percent Auto 72.3 % (45.5-73.1); Platelet Count Result 286 k/mm3 (150-375); Red Blood Count 4.16 M/mm3 (4.2-5.4); Red Cell Distribution Width 17.2 % (11.5-14.5); White Blood Count 7.6 K/mm3 (4.5-10.0)
[2024-04-29] MEDS: OXYTOCIN 30 UNITS/NS 500 ML 30 UNITS/500 ML BAG IV CONT (05:45)
[2024-04-29] MEDS: LACTATED RINGERS 1,000 ML 125 ML IV CONT ×2 (05:45→11:15)
--- NOTE | 2024-04-29 05:46 | LDADM ---
This patient, Johanny Joel, was admitted to Labor/Delivery/Recovery 104 on 04/29/24 at 04:53. Plans for labor, pain management and were discussed with patient. Patient/family oriented to hospital policies and general routines including ID bracelet, bed and alarms, visiting hours, pain management, procedures, bathroom and other care routines, personal items, smoking policy, room service/diet and guest tray routines, security routines, and visiting hours. Patient/Family are encouraged to report perceived risks to care and to ask questions if they do not understand what they are told or what they should do. See OBIX for further documentation.
[2024-04-29 05:49] LABS: Alanine Aminotransferase 20 U/L (6-35); Albumin Level 3.8 g/dL (3.5-5.1); Alkaline Phosphatase 283 U/L (38-126); Anion Gap 12 mmol/L (4-12); Aspartate Amino Transferase 25 U/L (14-36); Bilirubin,Total 0.7 mg/dL (0.2-1.3); Blood Urea Nitrogen 12 mg/dL (7-17); Calcium 9.3 mg/dL (8.4-10.2); Carbon Dioxide 20 mmol/L (22-30); Chloride 103 mmol/L (98-107); Estimated CRCL calculation 156 ml/min; Estimated Glomerular Filt Rate > 60; Glucose 90 mg/dL (65-110); Potassium 3.8 mmol/L (3.4-5.0); Sodium 135 mmol/L (137-145)
[2024-04-29 06:36] LABS: HIV 1/2 Ab P24 Ag Result Negative (Negative)
--- NOTE | 2024-04-29 06:55 | P.PNAN_ITS ---
Anes - Eval Pre Procedure Procedure: labor epidural Date/Time: 04/29/24 06:55 Surgeon: mathew Preop Diagnosis: pain during labor Pre Op Diagnosis: IOL Patient Data Age: 28 Gender: F Height: 1.6 m Weight: 99.8 kg Last Vital Signs Temp 36.4 C L 04/29/24 05:54 Pulse 81 04/29/24 06:31 BP 120/71 04/29/24 06:31 Allergies Allergy/AdvReac Type Severity Reaction Status Date / Time No Known Allergies Allergy Verified 04/29/24 05:56 Home Medications Medication Instructions Recorded Confirmed Type prenat.vits,cj,ted-imft-utsdh 1 tablet PO DAILY 09/01/22 04/29/24 History sertraline 50 mg tablet 50 mg PO DAILY 09/01/22 04/29/24 History docusate sodium 100 mg tablet 100 mg PO BID #60 tabs 09/13/22 04/29/24 Rx ferrous sulfate 325 mg (65 mg 325 mg PO BID 60 days #120 tabs 09/13/22 04/29/24 Rx iron) tablet levothyroxine 125 mcg tablet 125 mcg PO DAILY@0630 #90 tabs 09/15/22 04/29/24 Rx (Synthroid) aspirin 81 mg tablet 81 mg PO DAILY 04/24/24 04/29/24 History ergocalciferol (vitamin D2) 1,250 50,000 unit PO WEEKLY 04/24/24 04/29/24 History mcg (50,000 unit) capsule Laboratory Tests 04/29/24 05:21 WBC 7.6 K/mm3 (4.5-10.0) RBC 4.16 L M/mm3 (4.2-5.4) Hgb 12.3 g/dL (12.0-15.0) Hct 35.9 L % (37.0-47.0) MCV 86.3 fl (80-100) MCH 29.6 pg (26-34) MCHC 34.3 g/dl (32-36) RDW 17.2 H % (11.5-14.5) Plt Count 286 k/mm3 (150-375) MPV 10.2 fl (7.4-10.4) Immature Gran % (Auto) 0.4 % (0-0.5) Neut % (Auto) 72.3 % (45.5-73.1) Lymph % (Auto) 18.7 % (18.3-44.2) Pender % (Auto) 7.2 % (2.6-8.5) Eos % (Auto) 1.3 % (0-4.4) Baso % (Auto) 0.1 L % (0.2-1.2) Lymph # (Auto) 1.43 K/mm3 (0.9-3.2) Pender # (Auto) 0.6 K/mm3 (0.1-0.6) Eos # (Auto) 0.1 K/mm3 (0-0.3) Baso # (Auto) 0.0 K/mm3 (0.0-0.1) Abs Immat Gran (auto) 0.03 K/mm3 (0.00-0.031) Absolute Neuts (auto) 5.5 K/mm3 (1.3-6.7) Absolute Nucleated RBC 0.000 K/mm3 (0.0-0.012) Nucleated RBC % 0.0 % (0.0-0.2) Sodium 135 L mmol/L (137-145) Potassium 3.8 mmol/L (3.4-5.0) Chloride 103 mmol/L (98-107) Carbon Dioxide 20 L mmol/L (22-30) Anion Gap 12 mmol/L (4-12) BUN 12 mg/dL (7-17) Creatinine 0.50 L mg/dL (0.7-1.0) Estim Creat Clear Calc 156 ml/min Estimated GFR > 60 (59 - ) Glucose 90 mg/dL (65-110) Calcium 9.3 mg/dL (8.4-10.2) Total Bilirubin 0.7 mg/dL (0.2-1.3) AST 25 U/L (14-36) ALT 20 U/L (6-35) Alkaline Phosphatase 283 H U/L (38-126) Total Protein 7.0 g/dL (6.3-8.2) Albumin 3.8 g/dL (3.5-5.1) RPR Pending HIV 1&2 Ab/P24 Ag 4thGn Negative (Negative) Blood Type O Positive Antibody Screen Pending Patient hx anesthesia problems: none Family hx anesthesia problems: none Results Review: All pre-operative results and documents have been reviewed as part of the pre- operative evaluation. [facility] Family History Family History Father Acute rheumatoid arthritis Grandparent Diabetes mellitus Social History Social History Smoking status: Never smoker Second hand tobacco smoke exposure: No Substance use: never Do You Feel Safe in your Home?: Yes Lack of Transportation: No Lack of Food: Never True Current Housing: I Have Housing Concerned About Future Housing: No Difficulty Paying Gas/Electric Bills: No Difficulty Paying for Meds: No Currently Unemployed: No Education: Master's Degree or Higher Difficulty w/ Childcare or Family Care: No Spiritual care concerns: No Exam Day of Procedure 04/29/24 06:55
--- NOTE | 2024-04-29 08:03 | WPDOBADMIT ---
Obstetrics - Admit Note Admission Note: record reviewed. No pertinent additions to the history and/or any subsequent changes in the physical findings that are not consistent with the expected course of the were found. Additions to the history and/or subsequent changes in the physical findings follow. None.
--- NOTE | 2024-04-29 08:03 | PM.OBPNLAB ---
Pain Control Date/time seen: 04/29/24 0750 Pain control: tolerating well Comments: Feeling occasional contractions Pelvic Exam Dilation (cm): 3 (3.5) Effacement (%): 50 station: -2 Amniotic membrane status: Intact Comments: head very well applied to cervix. Contractions Monitor mode: External Contraction pattern: Irregular Contraction intensity: Mild Status Comments: FHT baseline 130. Moderate variability. + accelerations. Assessment and Plan Pitocin rate (mU/min): 4 Assessment: induction ongoing Comments: CNM to bedside. Discussed plan of care and option for amniotomy. Discussed risks, benefits, and expectations of breaking water. Patient is agreeable. Amniotomy performed and there was a moderate return of clear amniotic fluid. Patient tolerated procedure well. Anticipate vaginal . Dr. Salvador updated.
[2024-04-29 10:06] LABS: Rapid Plasma Reagin Non-Reactive (NonReactive)
--- NOTE | 2024-04-29 15:10 | PM.OBPNLAB ---
Pain Control Date/time seen: 04/29/24 phone call at 1505 Pain control: tolerating well and epidural Pelvic Exam Comments: 6cm per last RN exam Contractions Monitor mode: Internal Contraction frequency: 3 (2-5) Contraction duration: 60 (60-90) Contraction pattern: Regular Status Comments: FHTs 135 baseline with variability and occasional variable/early decels. Assessment and Plan Plan: continuous present management Comments: Anticipate vaginal . Dr. Salvador updated.
[2024-04-29] MEDS: METHYLERGONOVINE MALEATE 0.2 MG/ML VIAL IM (16:07)
[2024-04-29] MEDS: miSOPROStol 200 MCG TABLET 800 MCG (16:18)
[2024-04-29] MEDS: OXYTOCIN 30 UNITS/NS 500 ML 30 UNITS/500 ML BAG 125 UNITS IV CONT ×2 (16:30→23:35)
[2024-04-29] MEDS: SODIUM CHLORIDE 0.9% IV 1,000 ML 250 ML IV CONT (16:51)
[2024-04-29] MEDS: ceFAZolin 2 GM/D5W 50 ML 2 GM/50 ML BAG 200 GM (16:53)
--- NOTE | 2024-04-29 17:06 | PM.OBPRVD ---
OB - Vaginal Delivery Note Procedure Delivery date: 04/29/24 Induction method: Per Pitocin Protocol Delivery augmentation: Rupture of Membranes Delivery monitor: External FHT and Internal Uterine Route of delivery: Episiotomy description: None Laceration Description: Periurethral (superior to urethra) Delivery repair: vicryl (repaired by Dr. Salvador) Specimen: No Quantitative Blood Loss (ml): 1,150 Anesthesia type: Epidural Disposition: Floor Complications: Other complications ( hemorrhage) Narrative: Johanny presented for IOL 2/ history of full term IUFD in 2022. Her induction was started with Pitocin. Membranes were ruptured the. She received an epidural for analgesia and progressed to complete dilation. She pushed very well with contractions and brought the head to a complete crown. With the next contraction, there was smooth delivery of the remainder of the head. Fair restitution was observed any loose nuchal cord was identified. There was easy delivery of the anterior and posterior shoulders followed where the remainder of the infant. The infant cried after the delivery of the shoulders. Delayed cord clamping was allowed times several minutes per the parent's request. A periurethral laceration was noted and bleeding from the site was brisk. However, with applied pressure there was no bleeding. Dr. Salvador was called to assist with repair. The placenta delivered spontaneously in the Schultze presentation. After this time, vaginal bleeding was brisk and uterine massage began. The uterus firmed with massage. Methergine was administered. Bleeding slowed to an occasional trickle. Dr. Salvador arrived and the repair was completed. MD remained bedside for several minutes assessing bleeding. MD left when bleeding was stable. Before CNM left the delivery room, the bleeding increased. Aprox 75 ml clots removed from lower uterine segment. A Emily balloon was inserted per protocol. Aprox 25ml blood present in tubing. No bleeding around device. 1 liter NS at 250 ml/hr ordered in addition to 2nd bag of pitoin. All delivery counts correct. [place] Baby Date of : 04/29/24 Time of : 15:45 Gestational Age by Date: 37 Infant gender: Male Weight (pounds): 7 Weight (ounces): 8 presentation: vertex position: Right Occiput Anterior Placenta delivery description: Spontaneous and Normal Configuration Cord Vessel Description: 3 Vessels, Nuchal Cord and Delayed Cord Clamping score one minute: 8 score five minutes: 9
--- NOTE | 2024-04-29 17:21 | P.DS_ITS ---
DS: Admitting Diagnosis Discharge Date 05/01/24 Admitting Diagnosis IOL DS: Discharge Diagnosis Discharge Diagnosis (1) (normal spontaneous vaginal delivery): Code(s): O80 - Encounter for full-term uncomplicated delivery Status: Acute (2) Hypothyroidism affecting : Qualifiers: Trimester: third trimester Qualified Code(s): O99.283 - Endocrine, nutritional and metabolic diseases complicating , third trimester; E03.9 - Hypothyroidism, unspecified Code(s): O99.280 - Endocrine, nutritional and metabolic diseases complicating , unspecified trimester; E03.9 - Hypothyroidism, unspecified Status: Acute (3) hemorrhage: Qualifiers: hemorrhage type: third-stage Qualified Code(s): O72.0 - Third-stage hemorrhage Code(s): O72.1 - Other immediate hemorrhage Status: Acute (4) Mother currently breast-feeding: Code(s): Z39.1 - Encounter for care and examination of lactating mother Status: Acute OB - DS: Summary Hospital Course Hospital Course: Complicated by hemorrhage. OB Procedures : NST and Ultrasound OB Procedures Intrapartum: Spontaneous Vag Delivery OB Procedures: : Other (Emily) Peripartum Data Infant Delivery Method: Natural Vaginal Laceration Description: Periurethral (superior to urethra) Episiotomy description: None complications: uterine atony ( hemorrhage) Status at Discharge Functional status at discharge: independent ambulation Overall status at discharge: patient is progressing back to baseline Time Spent with Patient Time attestation: Total time spent providing and/or coordinating discharge services: Exam Narrative: Alert and oriented. Mood is pleasant and cooperative. Perineum with minimal edema. Fundus firm and below umbilicus. Const: General: cooperative, healthy appearing, no acute distress and alert Orientation/consciousness: patient oriented x3 Limitations: no limitations Resp: Effort & Inspection: normal respiratory effort and able to speak in complete sentences Cardio: Rate: regular rate GI: Inspection: normal to inspection GI Palp: Yes Soft to palpation : General: Yes bladder normal to palpation External Female Exam: other (lochia WNL) Bimanual exam- vagina & uterus: bladder normal to palpation Other: Fundus firm and below U Skin: General skin exam: normal color and no rashes or lesions noted Neuro: General: patient oriented x3 and moves all extremities Cognition (Neuro): normal cognition Speech: normal speech Sensory Exam: normal se nsation Extrem: General: normal to inspection and no calf tenderness Psych: Appearance: grossly normal Mental Status: mental status grossly normal Affect: normal affect Thought process: Normal thought process pr esent DS: Data Data Completed and Pending Labs on day of discharge: Labs from last 24 hours 04/29/24 05:21 WBC 7.6 RBC 4.16 L Hgb 12.3 Hct 35.9 L MCV 86.3 MCH 29.6 MCHC 34.3 RDW 17.2 H Plt Count 286 MPV 10.2 Immature Gran % (Auto) 0.4 Neut % (Auto) 72.3 Lymph % (Auto) 18.7 [place] % (Auto) 7.2 Eos % (Auto) 1.3 Baso % (Auto) 0.1 L Lymph # (Auto) 1.43 [place] # (Auto) 0.6 Eos # (Auto) 0.1 Baso # (Auto) 0.0 Abs Immat Gran (auto) 0.03 Absolute Neuts (auto) 5.5 Absolute Nucleated RBC 0.000 Nucleated RBC % 0.0 Sodium 135 L Potassium 3.8 Chloride 103 Carbon Dioxide 20 L Anion Gap 12 BUN 12 Creatinine 0.50 L Estim Creat Clear Calc 156 Estimated GFR > 60 Glucose 90 Calcium 9.3 Total Bilirubin 0.7 AST 25 ALT 20 Alkaline Phosphatase 283 H Total Protein 7.0 Albumin 3.8 RPR Non-reactive HIV 1&2 Ab/P24 Ag 4thGn Negative Blood Type O Positive Antibody Screen Negative Discharge Plan Discharge Attending physician on discharge: Ladi Salvador Consulting providers: Keira Jones Discharging Clinician: Keira Jones Anticipated Discharge Date/Time: 05/01/24 11:00 Patient Disposition: Home, Self-Care Activity: may shower and pelvic rest Diet: as tolerated Wound Care Instructions: follow printed instructions Discharge Instructions: Continue taking your vitamin and any other supplements as previously directed (Examples: Iron, Vitamin D). You may take Tylenol 1000mg over the counter every 6 hours as needed for pain. Do not exceed 4000mg of Tylenol daily. You may continue using tucks pads and dermoplast spray if needed for a few more days. Depression * Notify provider for signs or symptoms. These may include- * Feelings: Feeling anxious, angry, hopeless, guilt, or loss of interest/pleasure in activities you normally enjoy. Mood swings or panic attacks. * General: Extreme fatigue, loss of your appetite, feeling restless. Crying excessively, irritability, insomnia * Psychological: Lack of concentration, depression or fear, unwanted thoughts * Weight: Significant gain or loss * Safety: Thoughts of harming yourself or your baby. Patient Instructions: Antibiotic Form Stand Alone Forms: General Discharge Information Follow-up/Referrals: Keira Jones CNM [Certified Nurse Recoating Machine Operator] - (6 weeks ) Discharge Medications: New docusate sodium 100 mg Capsule 100 mg PO BID Qty: 60 0RF ferrous sulfate 325 mg (65 mg iron) Tablet,Delayed Release (Dr/Ec) 325 mg PO BID 30 Days Qty: 60 0RF ibuprofen 600 mg Tablet 600 mg PO Q6H PRN (Reason: Cramping) 14 Days Qty: 30 0RF ibuprofen 600 mg tablet 600 mg PO Q6H PRN (Reason: pain) Qty: 30 0RF Continued ergocalciferol (vitamin D2) 1,250 mcg (50,000 unit) capsule 50,000 unit PO WEEKLY sertraline 50 mg Tablet 50 mg PO DAILY prenat.vits,cj,dea-xsyj-cpeyu Tablet 1 tablet PO DAILY docusate sodium 100 mg tablet 100 mg PO BID Qty: 60 0RF ferrous sulfate 325 mg (65 mg iron) Tablet 325 mg PO BID 60 Days Qty: 120 0RF levothyroxine [Synthroid] 125 mcg Tablet 125 mcg PO DAILY@0630 Qty: 90 0RF Discontinued Adult Low Dose Aspirin 81 mg Tablet 81 mg PO DAILY Date of admission: 04/29/24 04:53 Primary Care Provider: Karlos,Beverly Paz Admitting Provider: Ladi Salvador Attending physician on admission: Ladi Salvador Condition: Stable
--- NOTE | 2024-04-29 21:24 | OBPPTRN ---
Patient transferred to post room #281 via wheelchair. Support person present. Oriented to unit, room, information board, rooming in, admission packet and security measures. Patient verbalizes understanding.
[2024-04-29 22:21] LABS: Hemoglobin 10.6 g/dL (12.0-15.0); Mean Corpuscular HGB Conc 34.2 g/dl (32-36); Mean Corpuscular Hemoglobin 29.4 pg (26-34); Mean Corpuscular Volume 86.1 fl (80-100); Mean Platelet Volume 10.4 fl (7.4-10.4); Platelet Count Result 243 k/mm3 (150-375); Red Cell Distribution Width 17.2 % (11.5-14.5); White Blood Count 14.7 K/mm3 (4.5-10.0)
--- NOTE | 2024-04-29 23:11 | P.PNOB_ITS ---
OB - PN: Subj Subjective Date/time seen: 04/29/24 23:11 Interval history: RN spoke with CNM. Pt up to Br. Voided without difficulty. Passed small clot. Uterus boggy. Firmed with massage. Plan PO methergine and IV pitocin. OB - PN: Obj Data Labs 04/29/24 22:09 04/29/24 05:21 Labs: Laboratory Results - last 24 hr 04/29/24 04/29/24 05:21 22:09 WBC 7.6 14.7 H RBC 4.16 L 3.60 L Hgb 12.3 10.6 L Hct 35.9 L 31.0 L MCV 86.3 86.1 MCH 29.6 29.4 MCHC 34.3 34.2 RDW 17.2 H 17.2 H Plt Count 286 243 MPV 10.2 10.4 Immature Gran % (Auto) 0.4 Neut % (Auto) 72.3 Lymph % (Auto) 18.7 [place] % (Auto) 7.2 Eos % (Auto) 1.3 Baso % (Auto) 0.1 L Lymph # (Auto) 1.43 [place] # (Auto) 0.6 Eos # (Auto) 0.1 Baso # (Auto) 0.0 Abs Immat Gran (auto) 0.03 Absolute Neuts (auto) 5.5 Absolute Nucleated RBC 0.000 Nucleated RBC % 0.0 Sodium 135 L Potassium 3.8 Chloride 103 Carbon Dioxide 20 L Anion Gap 12 BUN 12 Creatinine 0.50 L Estim Creat Clear Calc 156 Estimated GFR > 60 Glucose 90 Calcium 9.3 Total Bilirubin 0.7 AST 25 ALT 20 Alkaline Phosphatase 283 H Total Protein 7.0 Albumin 3.8 RPR Non-reactive HIV 1&2 Ab/P24 Ag 4thGn Negative Blood Type O Positive Antibody Screen Negative OB - PN A/P Time Spent With Patient Time: Total time spent is greater than 50% in coordination of care (as documented) at patient's floor/unit and/or counseling patient:
[2024-04-29] MEDS: METHYLERGONOVINE MALEATE 0.2 MG TABLET PO (23:34)
[2024-04-29] MEDS: ACETAMINOPHEN 325 MG TABLET 650 MG PO (23:48)
[2024-04-29] MEDS: IBUPROFEN 600 MG TABLET PO (23:48)
[2024-04-30 03:05] VITALS: BP 114/72; PULSE 63; RESP 18; TEMP 36.4; O2SAT 97
[2024-04-30 05:24] LABS: Hemoglobin 9.9 g/dL (12.0-15.0)
[2024-04-30] MEDS: METHYLERGONOVINE MALEATE 0.2 MG TABLET PO ×2 (05:46→11:53)
[2024-04-30] MEDS: POLYSACCHARIDE IRON COMPLEX 150 MG CAPSULE PO ×2 (07:07→16:32)
[2024-04-30] MEDS: DOCUSATE SODIUM 100 MG CAPSULE PO ×2 (07:07→16:33)
[2024-04-30] MEDS: LEVOTHYROXINE SODIUM 125 MCG TABLET PO (07:07)
[2024-04-30] MEDS: SERTRALINE HCL 50 MG TABLET PO (07:07)
[2024-04-30] MEDS: FERROUS SULFATE 325 MG TABLET DR PO ×2 (07:07→16:32)
[2024-04-30] MEDS: MULTIVIT/MIN/PREN/FOL AC/IRON TABLET 1 TAB PO (07:08)
[2024-04-30 07:30] VITALS: BP 119/78; PULSE 83; RESP 16; TEMP 36.6; O2SAT 99
--- NOTE | 2024-04-30 07:46 | P.PNOB_ITS ---
OB - PN: Subj Subjective Date/time seen: * 04/30/24 07:40 Interval history: Post Day 1 from with [facility]. Doing well. Urinating without difficulty. Denies passing any large clots. Denies dizziness with ambulating. Tolerating po food and fluids. Bonding with infant. Attempting to breastfeed. Patient comments: pain well controlled [place] feeding status: breast and bottle feeding OB - PN: Obj Data Labs 04/30/24 05:09 04/29/24 05:21 Labs: Laboratory Results - last 24 hr 04/29/24 04/29/24 04/30/24 05:21 22:09 05:09 WBC 14.7 H RBC 3.60 L Hgb 10.6 L 9.9 L Hct 31.0 L 30.0 L MCV 86.1 MCH 29.4 MCHC 34.2 RDW 17.2 H Plt Count 243 MPV 10.4 RPR Non-reactive OB - PN A/P Plan day: 1 Plan: routine care Time Spent With Patient Time: Total time spent is greater than 50% in coordination of care (as documented) at patient's floor/unit and/or counseling patient: Review of Systems Review of Systems: All systems reviewed & are unremarkable except as noted in HPI and below Exam Narrative: Alert and oriented. Mood is pleasant and cooperative. Perineum with minimal edema. Fundus firm and below umbilicus. Const: General: cooperative, healthy appearing, no acute distress and alert Orientation/consciousness: patient oriented x3 Limitations: no limitations Resp: Effort & Inspection: normal respiratory effort and able to speak in complete sentences Cardio: Rate: regular rate GI: Inspection: normal to inspection GI Palp: Yes Soft to palpation : General: Yes bladder normal to palpation External Female Exam: other (lochia WNL) Bimanual exam- vagina & uterus: bladder normal to palpation Other: Fundus firm and below U Skin: General skin exam: normal color and no rashes or lesions noted Neuro: General: patient oriented x3 and moves all extremities Cognition (Neuro): normal cognition Speech: normal speech Sensory Exam: normal sensation Extrem: General: normal to inspection and no calf tenderness Psych: Appearance: grossly normal Mental Status: mental status grossly normal Affect: normal affect Thought process: Normal thought process present
--- NOTE | 2024-04-30 07:50 | PC.NURSE ---
Primary RN requested a breast pump for the patient because she hasn't been able to latch baby overnight. When entering the room, mom had baby at the breast with the nipple shield. He will not maintain the latch for more than a few sucks so we encouraged gently keeping his head close to the breast to keep the latch. He may be expecting a faster flow since he has been taking a bottle at the last several feedings. Breast pump provided due to [patient request and use of nipple shield]. Instructions given on cleaning, care, usage, that there should be no pain, pumping schedule for milk production, collection, and storage of human milk. Patient was assessed for correct placement, flange size (she measured herself at a 17mm, 21mm flange recommended), to pump for comfort and nipple stretching/stimulation for adequate milk production every 3 hours (8 times in 24 hours) 1-2 times at night. Parents are encouraged to record the pumping schedule on the feeding sheet.?Mother voiced understanding of the education shared along with mom/baby guide and pumping tracker for additional resource information. Reported to the Primary RN.
--- NOTE | 2024-04-30 09:29 | WPDANLDPN2 ---
Anes-Prog Note L&D Date/Time: 04/30/24 09:29 Comfortable throughout: labor and delivery Epidural/Spinal procedure site: clean & non-tender Neuro status: Neuro function grossly intact. Cardiovascular status: normal Respiratory status: normal Airway patency: baseline Mental status: baseline Post-Op hydration status: normal Vital Signs: Last Vital Signs Temp 36.6 C 04/30/24 07:30 Pulse 83 04/30/24 07:30 Resp 16 04/30/24 07:30 BP 119/78 04/30/24 07:30 Pulse Ox 99 04/30/24 07:30 O2 Del Method Room Air 04/29/24 21:30 Pain score (VAS): 06/21 I/O: Intake & Output 04/29/24 04/30/24 04/30/24 23:59 07:59 15:59 Output Total 2222 Balance -2222 Post-procedural complaints: none Patient feedback: Patient satisfied with anesthetic care.
[2024-04-30] MEDS: ERGOCALCIFEROL 50,000 UNITS CAPSULE 50000 UNITS PO (11:53)
[2024-04-30 12:28] VITALS: BP 117/69; PULSE 78; RESP 16; TEMP 36.9; O2SAT 98
[2024-04-30] MEDS: IBUPROFEN 600 MG TABLET PO ×2 (14:20→20:26)
[2024-04-30] MEDS: ACETAMINOPHEN 325 MG TABLET 650 MG PO ×2 (14:21→20:26)
[2024-04-30 20:00] VITALS: BP 114/78; PULSE 69; RESP 18; TEMP 36.6; O2SAT 97
[2024-05-01] MEDS: POLYSACCHARIDE IRON COMPLEX 150 MG CAPSULE PO (06:37)
[2024-05-01] MEDS: MULTIVIT/MIN/PREN/FOL AC/IRON TABLET 1 TAB PO (06:37)
[2024-05-01] MEDS: DOCUSATE SODIUM 100 MG CAPSULE PO (06:37)
[2024-05-01] MEDS: FERROUS SULFATE 325 MG TABLET DR PO (06:37)
[2024-05-01] MEDS: LEVOTHYROXINE SODIUM 125 MCG TABLET PO (06:37)
[2024-05-01] MEDS: SERTRALINE HCL 50 MG TABLET PO (06:37)
[2024-05-01 07:35] VITALS: BP 116/81; PULSE 66; RESP 16; TEMP 36.3; O2SAT 100
--- NOTE | 2024-05-01 08:17 | P.PNOB_ITS ---
OB - PN: Subj Subjective Date/time seen: 05/01/24 08:17 Interval history: Post Day 2 from with [facility]. Doing well. Urinating without difficulty. Denies passing any large clots. Denies dizziness with ambulating. Tolerating po food and fluids. improving. Patient comments: pain well controlled [place] baby status: doing well and nursing well feeding status: breast and bottle feeding OB - PN: Obj Data Labs 04/30/24 05:09 04/29/24 05:21 OB - PN A/P Assessment and Plan (1) (normal spontaneous vaginal delivery): Code(s): O80 - Encounter for full-term uncomplicated delivery Status: Acute (2) hemorrhage: Qualifiers: hemorrhage type: third-stage Qualified Code(s): O72.0 - Third-stage hemorrhage Code(s): O72.1 - Other immediate hemorrhage Status: Acute (3) Mother currently breast-feeding: Code(s): Z39.1 - Encounter for care and examination of lactating mother Status: Acute (4) Hypothyroidism affecting : Qualifiers: Trimester: third trimester Qualified Code(s): O99.283 - Endocrine, nutritional and metabolic diseases complicating , third trimester; E03.9 - Hypothyroidism, unspecified Code(s): O99.280 - Endocrine, nutritional and metabolic diseases complicating , unspecified trimester; E03.9 - Hypothyroidism, unspecified Status: Acute Plan day: 2 Plan: discharge home Time Spent With Patient Time: Total time spent is greater than 50% in coordination of care (as documented) at patient's floor/unit and/or counseling patient: Review of Systems Review of Systems: All systems reviewed & are unremarkable except as noted in HPI and below Exam Narrative: Alert and oriented. Mood is pleasant and cooperative. Perineum with minimal edema. Fundus firm and below umbilicus. Const: General: cooperative, healthy appearing, no acute distress and alert Orientation/consciousness: patient oriented x3 Limitations: no limitations Resp: Effort & Inspection: normal respiratory effort and able to speak in complete sentences Cardio: Rate: regular rate GI: Inspection: normal to inspection GI Palp: Yes Soft to palpation : General: Yes bladder normal to palpation External Female Exam: other (lochia WNL) Bimanual exam- vagina & uterus: bladder normal to palpation Other: Fundus firm and below U Skin: General skin exam: normal color and no rashes or lesions noted Neuro: General: patient oriented x3 and moves all extremities Cognition (Neuro): normal cognition Speech: normal speech Sensory Exam: normal sensation Extrem: General: normal to inspection and no calf tenderness Psych: Appearance: grossly normal Mental Status: mental status grossly no rmal Affect: normal affect Thought process: Normal thought process present
[2024-05-02 10:19] VITALS: BP 118/79; PULSE 65; RESP 16; TEMP 36.9; O2SAT 98
== END 2024-05-01 10:45 | disposition home or self-care (01) | DRG 768 ==
LOC: ANHLDR 17:27 → ANHOB2 21:25
PROVIDERS: Advanced Practice Midwife; Admitting Provider Obstetrics & Gynecology Gynecology; PCP Family Medicine; Visit Provider Obstetrics & Gynecology Gynecology
DX: O69.81X0 Labor and delivery complicated by cord around neck, without compression, not applicable or unspecified (principal); Z37.0 Single live birth; O72.1 Other immediate postpartum hemorrhage; Z3A.39 39 weeks gestation of pregnancy; O71.82 Other specified trauma to perineum and vulva; O36.8330 Maternal care for abnormalities of the fetal heart rate or rhythm, third trimester, not applicable or unspecified; O99.284 Endocrine, nutritional and metabolic diseases complicating childbirth; E03.9 Hypothyroidism, unspecified
CPT/HCPCS: 36415; 80053; 85014; 85018; 85025; 85027; 86592; 86703; 86850; 86900; 86901; A9270; G0432; J0690; J2210; J2590; J2795; J7030; J7120